=== PATIENT | male | born 1970 | race Two or more races ===

== ENCOUNTER 2018-01-03 06:30 | Day surgery (SDC) | payer BC, OTHER ==
[~2018-01-03] VITALS: Ht 190.5 cm; Wt 109.8 kg
--- NOTE | 2018-01-03 08:03 | NUR ---
01/03/18 0802 Qi Younger 0756-PATIENT ARRIVED TO PACU ON 3L NC O2 SAT 100% WEANED TO 2L NC. PATIENT DROWSY EYES OPEN DENIES PAIN OR NAUSEA. ABDOMEN SOFT ENCOURAGED TO PASS FLATUS. PATIENT FALLING BACK TO SLEEP RR EVEN
--- NOTE | 2018-01-03 09:31 | OR ---
[facility] [address], [place] [address] Signed DATE OF OPERATION: 01/03/2018 SURGEON: Mee Reis MD PREOPERATIVE DIAGNOSES: 1. Rectal bleeding. 2. Internal hemorrhoids. POSTOPERATIVE DIAGNOSES: 1. Moderate internal hemorrhoids x3. 2. Minimal diverticulosis (x2). 3. 5 mm polyps at 78 cm, 42 cm and 41 cm. PROCEDURE: Colonoscopy with hot biopsy. ESTIMATED BLOOD LOSS: None. INDICATIONS: Terrell is a 47-year-old gentleman who over the last 9 months has had trouble with intermittent rectal bleeding. He feels as a lump pops out of his anus and usually goes back inside by itself. He had been to his primary care provider. He was then asked to see me as a general surgeon. He said there is no family history of colon cancer or polyps. In the office, his rectal exam showed good sphincter tone with no obvious external hemorrhoids. However, he does have a predominant hemorrhoid in the left lateral position. He is so young and strong though that the tissue just fills our anoscope for the most part. I told Terrell he needed to have a colonoscopy. We gave him a pamphlet on colonoscopy. We looked at that together along with the risks including, but not limited to gas bloating, crampy abdominal pain, bleeding, perforation, requiring surgery, and missed diagnosis. We also discussed the need for IV conscious sedation. He had expressed understanding and wished to proceed. PROCEDURE NOTE: Terrell was taken into our endoscopy suite and placed in the left lateral decubitus position. He was given 8 mg of Versed and 125 mcg of fentanyl. A digital rectal exam was performed and this was unremarkable. The adult colonoscope was then introduced and advanced all around into the cecum without difficulty. His prep was good. The scope was slowly withdrawn. I saw two small diverticula out in the colon. He also had a few polyps which were removed with the help of hot biopsy forceps. The rectum itself was Electronically Signed By: MEE REIS MD 01/03/18 0931 PATIENT NAME: TERRELL CAM OPERATIVE REPORT DATE OF : 72 REPORT #: [id number] PHYSICIAN: MEE REIS MD PCP: NGUYEN YEBOAH MD REPORT IS CONFIDENTIAL AND NOT TO BE RELEASED WITHOUT AUTHORIZATION [facility] [address], [place] [address] Signed unremarkable. Upon retroflexion of the scope, he had three internal hemorrhoid columns, the largest one also was irritated. I suspect that it is the one that bleeds from time to time. After this, the gas was suctioned out. The colonoscope removed. Terrell tolerated the procedure quite well. RECOMMENDATIONS: I will see Terrell back in my office in 7 to 14 days to review his results. We will review findings of his hemorrhoids as well. Mee Reis MD ALB/MODL /[id number] cc: MD Mee Parikh MD Copies: NGUYEN YEBOAH MD, ANDREW L MD ~ Electronically Signed By: MEE REIS MD 01/03/18 0931 PATIENT NAME: TERRELL CAM OPERATIVE REPORT DATE OF : 72 REPORT #: [id number] PHYSICIAN: MEE REIS MD PCP: NGUYEN YEBOAH MD REPORT IS CONFIDENTIAL AND NOT TO BE RELEASED WITHOUT AUTHORIZATION
--- NOTE | 2018-01-03 09:38 | NUR ---
PT IS ALERT, ORIENTED AND SUPPORTED BY HIS SPOUSE. FIRST SCOPE, SEEMED TO DEAL WITH PREP APPROPRIATELY. FEW CONCERNS, EXTENDED BLESSING, WILL FOLLOW NEEDED
== END 2018-01-03 08:50 | disposition home or self-care (01) ==
LOC: OPS 06:30 → DS 06:30 → OPS 06:45
PROVIDERS: Colon & Rectal Surgery
PROC: 0DBE8ZZ Excision of Large Intestine, Via Natural or Artificial Opening Endoscopic (ICD-10-PCS; principal; 2018-01-03 06:45)
DX: D12.6 Benign neoplasm of colon, unspecified (principal); K63.5 Polyp of colon; K64.8 Other hemorrhoids; K57.30 Diverticulosis of large intestine without perforation or abscess without bleeding
CPT/HCPCS: 99153; G0500; J2250; J3010; J7120

== ENCOUNTER 2022-02-14 08:02 | Day surgery (SDC) | payer BC, OTHER ==
[~2022-02-14] VITALS: Ht 188 cm; Wt 105.2 kg
[~2022-02-14 08:02] MED LIST: NORCO 7.5-3251 EACH PO; THERA-D50 MCG PO; VITAMIN B-121000 MC3 PO
--- NOTE | 2022-02-14 09:26 | NUR ---
02/14/22 0926 Scott,Madeline 0922 PT ARRIVED TO PACU ON RA AND WAKE TO VERBAL STIMULI. VSS. PLAN OF CARE DISCUSSED AND PT ENCOURAGED TO PASS GAS/AIR. PT EASILY FALLS BACK TO SLEEP.
--- NOTE | 2022-02-15 06:17 | OR ---
[facility] [address], [place] [address] Signed DATE OF OPERATION: 02/14/2022 SURGEON: Mee Reis MD PREOPERATIVE DIAGNOSES: 1. History of hyperplastic and adenomatous polyps in 2018 at age 47. 2. Hemorrhoidectomy in 2018. 3. Diverticulosis. POSTOPERATIVE DIAGNOSES: 1. Minimal sigmoid diverticulosis. 2. 5 mm polyp at 100 cm. 3. Moderate internal hemorrhoids x2. PROCEDURE: Colonoscopy with hot biopsy. ESTIMATED BLOOD LOSS: None. INDICATIONS: Terrell is a 51-year-old gentleman, who came to us in 2018 at the age of 47. He was having trouble with rectal bleeding from hemorrhoid. The colonoscopy revealed hyperplastic polyps and a tubular adenomatous polyp all less than 5 mm. He had minimal diverticulosis. We took out his moderate internal bleeding hemorrhoid later that year. He had done well with Versed and fentanyl. He comes every five years. His primary care provider asked him to come back one year early. He said he has no lower GI complaints currently. In the office, I gave him a pamphlet on colonoscopy. He understands the nature of the test along with the risks including, but not limited to gas bloating, crampy abdominal pain, bleeding, perforation requiring surgery, and missed diagnosis. He had expressed understanding and wished to proceed. PROCEDURE IN DETAIL: Terrell was taken into our endoscopy suite and placed in the left lateral decubitus position. He was given 8 mg of Versed and 175 mcg of fentanyl. He woke up a few times during the case but overall did well. A digital rectal exam was performed. He has good sphincter tone with no external hemorrhoids. Prostate not particularly concerning, although a little indurated. The adult colonoscope was then introduced advanced all around into the cecum under direct visualization of camera without difficulty. His prep was quite good. We could easily see the appendiceal orifice and the ileocecal valve. Electronically Signed By: MEE REIS MD 02/15/22 0617 PATIENT NAME: TERRELL CAM OPERATIVE REPORT DATE OF : 72 REPORT #: [id number] PHYSICIAN: MEE REIS MD PCP: JEOVANNY ANGLIN MD REPORT IS CONFIDENTIAL AND NOT TO BE RELEASED WITHOUT AUTHORIZATION [facility] [address] [place] [id number] Signed The scope was then slowly withdrawn. We took pictures throughout for photodocumentation. The above-mentioned polyp was easily removed with the help of hot biopsy forceps. He does have diverticulosis. They were small in size, few in number, and scattered about in the sigmoid colon. Once in the rectum, the scope had been retroflexed and he has two moderate-sized internal hemorrhoids remaining. After this, the gas was suctioned out. The colonoscope removed. Terrell tolerated the procedure quite well. RECOMMENDATIONS: I will see Terrell back in my office in 7 to 14 days to review his results. MD ALYSIA Perea/SARAVANANL /[id number] cc: MD Jeovanny Perea MD Copies: MEE REIS MD, JAMES MD ~ Electronically Signed By: MEE REIS MD 02/15/22 0617 PATIENT NAME: TERRELL CAM CRYSTAL OPERATIVE REPORT DATE OF : 72 REPORT #: [id number] PHYSICIAN: MEE REIS MD PCP: JEOVANNY ANGLIN MD REPORT IS CONFIDENTIAL AND NOT TO BE RELEASED WITHOUT AUTHORIZATION
== END 2022-02-14 09:56 | disposition home or self-care (01) ==
LOC: OPS 08:02 → DS 08:02 → OPS 09:00
PROVIDERS: ATTEND Colon & Rectal Surgery
PROC: 0DBE8ZX Excision of Large Intestine, Via Natural or Artificial Opening Endoscopic, Diagnostic (ICD-10-PCS; principal; 2022-02-14 09:00)
DX: Z12.11 Encounter for screening for malignant neoplasm of colon (principal); K63.5 Polyp of colon; I10 Essential (primary) hypertension; E66.9 Obesity, unspecified; K57.30 Diverticulosis of large intestine without perforation or abscess without bleeding; K64.0 First degree hemorrhoids
CPT/HCPCS: 99153; G0500; J2250; J3010; J7121